=== PATIENT | male | born 1965 | race Caucasian/White ===

== ENCOUNTER 2023-06-17 08:26 | Outpatient (CLI) | payer BC ==
[2023-06-17] MEDS ORDERED: Iopamidol-370 76% 500 ML MDV (1 ML CHARGE) ONE (09:06)
== END 2023-06-17 08:27 | disposition home or self-care (01) ==
LOC: BICCT 08:26
PROVIDERS: ATTEND Physician Assistant Medical
DX: R10.11 Right upper quadrant pain (principal); K21.9 Gastro-esophageal reflux disease without esophagitis; R63.4 Abnormal weight loss
CPT/HCPCS: 74177; 82565; Q9967